=== PATIENT | female | born 1960 | race Caucasian/White ===

== ENCOUNTER 2017-10-21 01:59 | Inpatient (IN) | payer MEDICAID ==
--- NOTE | 2017-10-21 02:26 | ED Physician Chart ---
ED Chief Complaint/HPI - Patient Information Date Seen:: 10/21/17 Time Seen:: 02:00 Chief Complaint:: Dyspnea History of Present Illness:: onset x one day of dyspnea, cough, chest pain, fever, and congestion; pt denies H/As, neck pain, abd. pain, A/N/V/D/C, chills, or urinary s/s Allergies:: Allergies Allergy/AdvReac Type Severity Reaction Status Date / Time No Known Allergies Allergy Verified 10/21/17 02:14 Vitals:: Vital Signs - 8 hr 10/21/17 02:00 Temp 98.6 F HR 120 RR 20 BP 181/110 O2 Sat % 95 Historian:: Patient Review:: Nurse's Note Reviewed ED Review of Systems - Review of Systems General/Constitutional: Fever, No chills, No weight loss, No weakness, No diaphoresis, No edema, No loss of appetite Skin: No skin lesions, No rash, No bruising Head: No headache, No light-headedness Eyes: No loss of vision, No pain, No diplopia ENT: No earache, No nasal drainage, No sore throat, No tinnitus Neck: No neck pain, No swelling, No thyromegaly, No stiffness, No mass noted Cardio Vascular: Chest pain, Palpitations, No PND, No orthopnea, No edema Pulmonary: SOB, Cough, No sputum, No wheezing GI: No nausea, No vomiting, No diarrhea, No pain, No melena, No hematochezia, No constipation, No hematemesis G/U: No dysuria, No frequency, No hematuria, No nacturia Repeater Operator: No vaginal discharge, No abnormal vaginal bleed, No contraction Musculoskeletal: No bone or joint pain, No back pain, No muscle pain Endocrine: No polyuria, No polydipsia Psychiatric: No prior psych history, No depression, No anxiety, No suicidal ideation, No homicidal ideation, No auditory hallucination, No visual hallucination Hematopoietic: No bruising, No lymphadenopathy Allergic/Immuno: No urticaria, No angioedema Neurological: No syncope, No focal symptoms, No weakness, No paresthesia, No headache, No seizure, No dizziness, No confusion, No vertigo ED Past Medical History - Past Medical History Obtainable: Yes Past Medical History: HTN, CAD, Asthma/COPD, Dyslipidemia Family History: Diabetes Melitus, HTN Social History: Smoker, No Alcohol, No Drug Use, Surgical History: None Psychiatricy History: None Medication: Reviewed Family Medical History - Family Member Mother History Unknown: Yes ED Physical Exam - Physical Examination General/Constitutional: Awake, Well-developed, well-nourished, Alert, No distress, GCS 15, Non-toxic appearing, Ambulatory Head: Atraumatic Eyes: Lids, conjuctiva normal, PERRL, EOMI Skin: Nl inspection, No rash, No skin lesions, No ecchymosis, Well hydrated, No lymphadenopathy ENMT: External ears, nose nl, TM canals nl, Nasal exam nl, Lips, teeth, gums nl , Oropharynx nl, Tonsils nl Neck: Nontender, Full ROM w/o pain, No JVD, No nuchal rigidity, No bruit, No mass, No stridor Respiratory: Nl effort/Exclusion Other Respiratory comments:: Lungs: + Rales and Rhonchi Cardio Vascular: RRR, No murmur, gallop, rubs, NL S1 S2, Carotid/Femoral/Distal pulses equal bilaterally GI: No tenderness/rebounding/guarding, No organomegaly, No hernia, Normal BS's, Nondistended, No mass/bruits, No McBurney tenderness : No CVA tenderness Extremities: No tenderness or effusion, Full ROM, normal strength in all extremities, No edema, Normal digits & nails Neuro/Psych: Alert/oriented, DTR's symmetric, Normal sensory exam, Normal motor strength, Judgement/insight normal, Mood normal, Normal gait, No focal deficits Misc: Normal back, No paraspinal tenderness ED Labs/Radiology/EKG Results - Lab Results Comments:: K+: 3.1; BNP: 580; D-Dimer: 1870 - Radiology Results Comments:: CXR: + CHF; + Infiltrate; COPD - EKG Interpretations EKG Time:: 02:11 Rate & Rhythm: 115; ST Comments:: non-specific st-t changes ED Septic Shock - . Is Septic Shock (SBP<90, OR Lactate>4 mmol\L) present?: No - <6hrs of presentation: Vital Signs: Vital Signs - 8 hr 10/21/17 02:00 Temp 98.6 F HR 120 RR 20 BP 181/110 O2 Sat % 95 ED Reassessment (Disposition) - Reassessment Reassessment Condition:: Improved - Diagnosis Diagnosis:: Anemia; CHF; Chest Pain; Angina Pectoris; PNA; Sepsis: Dyspnea; PE; HTN; Uncontrolled Hypertension; COPD; Hypokalemia - Aftercare/Follow up Instructions Aftercare/Follow-Up Instructions:: Counseled pt regarding lab results/diagnosis & need follow up, Counseled pt & family regarding lab results/diagnosis & need follow up - Patient Disposition Discharge/Transfer:: Acute Care w/in this hosp Accepting Physician:: Dr. Jaquez Time Called:: 329 Time Responded:: 03:30 Admitted to:: Telemetry Spoke to:: Dr. Jaquez Admitting Medical Physician:: Dr. Jaquez Condition at Disposition:: Stable, Improved
[2017-10-21] MEDS ORDERED: Morphine Sulfate 2 mg/mL 1mL Syr IV STA (02:37)
[2017-10-21 02:54] LABS: URINE MICROSCOPIC INDICATED? YES; URINE SOURCE MIDSTREAM
[2017-10-21] MEDS ORDERED: Morphine Sulfate 2 mg/mL 1mL Syr ONE (02:56)
[2017-10-21 02:59] LABS: % BASOPHILS 1.1 % (0.0-2.0); % EOSINOPHILS 4.1 % (0.0-5.0); % LYMPHOCYTES 28.1 % (20.0-50.0); % MONOCYTES 4.6 % (2.0-10.0); % NEUTROPHILS 62.1 % (40.0-80.0); BASOPHILE ABSOLUTE 0.1 Th/cumm (0-0.2); EOSINOPHILE ABSOLUTE 0.3 Th/cmm (0.1-0.4); HEMATOCRIT 35.6 % (41.0-60); HEMOGLOBIN 11.8 gm/dL (12-16); LYMPHOCYTE ABSOLUTE 2.2 Th/cmm (1.5-3.0); MEAN CELL VOLUME 88.7 fl (81-100); MEAN CORPUSCULAR HEMOGLOBIN 29.3 pg (27.0-31.0); MEAN CORPUSCULAR HGB CONC 33.1 pg (28.0-36.0); MEAN PLATELET VOLUME 9.1 fl; MONOCYTE ABSOLUTE 0.4 Th/cmm (0.3-1.0); NEUTROPHILE ABSOLUTE 4.8 Th/cmm (1.8-8.0); PLATELET COUNT 392 Th/cmm (150-400); RED BLOOD COUNT 4.01 Mil/cmm (3.80-5.10); RED CELL DISTRIBUTION WIDTH 16.3 % (11.5-20.0); WHITE BLOOD COUNT 7.8 Th/cmm (4.8-10.8)
[2017-10-21 03:04] LABS: URINE BILIRUBIN NEGATIVE (NEGATIVE); URINE BLOOD NEGATIVE (NEGATIVE); URINE GLUCOSE (UA) NEGATIVE (NEGATIVE); URINE KETONE NEGATIVE (NEGATIVE); URINE LEUKOCYTE ESTERASE NEGATIVE (NEGATIVE); URINE NITRATE NEGATIVE (NEGATIVE); URINE PROTEIN NEGATIVE (NEGATIVE); URINE UROBILINOGEN 0.2 E.U./dL (0.2 - 1.0)
[2017-10-21 03:06] LABS: URINE CLARITY CLEAR (CLEAR); URINE COLOR YELLOW
[2017-10-21 03:07] LABS: URINE EPITHELIAL CELLS MODERATE /lpf (FEW); URINE RBC 0-2 /hpf (0-5); URINE WBC 0-2 /hpf (0-5)
[2017-10-21 03:08] LABS: URINE BACTERIA FEW /hpf (NONE SEEN)
[2017-10-21 03:09] LABS: ALB/GLOB RATIO 1.4 (1.0-1.8); ALKALINE PHOSPHATASE 97 U/L (34-104); ANION GAP 13.8 (7.0-16.0); BILIRUBIN,TOTAL 0.3 mg/dL (0.3-1.0); BUN - UREA NITROGEN 5 mg/dL (7-25); CALCIUM SERUM 9.3 mg/dL (8.6-10.3); CARBON DIOXIDE 23.3 mEq/L (21.0-31.0); CHLORIDE 108 mEq/L (98-107); CHOLESTEROL 215 mg/dL (<200); CREATININE - SERUM 0.7 mg/dL (0.6-1.2); CREATININE KINASE 109 U/L (30-223); GFR AFRICAN-AMERICAN > 60.0 ml/min (>90); GFR NON AFRICAN-AMERICAN > 60.0 ml/min; GLUCOSE 141 mg/dL (70-105); HDL -HIGH DENSITY LIPOPROTEIN 43 mg/dL (23-92); POTASSIUM SERUM 3.1 mEq/L (3.5-5.1); SGOT 22 U/L (13-39); SGPT/ALT 14 U/L (7-52); SODIUM SERUM 142 mEq/L (136-145); TOTAL PROTEIN,SERUM 6.9 gm/dL (6.0-8.3); TRIGLYCERIDES 169 mg/dL (<150)
[2017-10-21 03:10] LABS: INR 0.92 (0.5-1.4); PROTHROMBIN TIME (TEST) 9.6 SECONDS (9.5-11.5)
[2017-10-21] MEDS ORDERED: Aspirin 325 mg EC PO ONE (03:48)
[2017-10-21] MEDS ORDERED: Levofloxacin 500mg/100mL 500 MG/100 ML BAG IV ONE ×2 (03:48→03:53)
[2017-10-21] MEDS ORDERED: NITROGLYCERIN OINT 2% 1 INCH PACKET TP STA (03:49)
[2017-10-21] MEDS ORDERED: NITROGLYCERIN OINT 2% 1 INCH PACKET TP ONE (03:54)
[2017-10-21] MEDS ORDERED: Potassium Chloride 20 mEq ER Tab PO ONE ×2 (03:57→04:15)
[2017-10-21] MEDS ORDERED: Aspirin 81mg Chewable Tab ONE (04:02)
[2017-10-21] MEDS ORDERED: Albuterol/Ipratropium Neb 3 ML AERS HHN PRN (04:30)
--- NOTE | 2017-10-21 07:49 | Diagnostic Imaging Report ---
CHEST X-RAY: AP view INDICATION: Dyspnea COMPARISON: None FINDINGS: Right lower lung zone infiltrates are noted. An additional left mid lung hazy and linear densities are noted. No pleural effusions. Heart size mildly prominent. Degenerative changes of the spine are noted. There is atherosclerosis of the aortic arch. IMPRESSION: Right lower lung zone infiltrate concerning for pneumonia. Clinical correlation and follow-up is recommended to ensure resolution and exclude underlying neoplastic process. If indicated short-term follow-up CT chest may also be obtained for further assessment Left mid lung hazy densities and linear densities probably related to subsegmental atelectasis. Mild cardiomegaly and atherosclerosis.
[2017-10-21] MEDS ORDERED: Aspirin 81mg Chewable Tab PO SCH (09:00)
--- NOTE | 2017-10-21 18:36 | History & Physical ---
ADMIT DATE: 10/21/2017 CHIEF COMPLAINT: Chest pain, cough, fever for 1 day duration. HISTORY OF PRESENT ILLNESS: The patient is a 57-year-old female presented to the Emergency Room with cough, fever, chest pain, evaluated by the ER physician. Initial workup significant for early pneumonia, admitted to ICU, started on IV fluid, antibiotic. The patient denies any nausea, any vomiting. PAST MEDICAL HISTORY: Significant for hypertension, diabetes mellitus, hypothyroidism, depression. PAST SURGICAL HISTORY: No recent surgery. ALLERGIES: None. MEDICATIONS: Follow admission reconciliation. SOCIAL HISTORY: No smoking. No alcohol. No drug. FAMILY HISTORY: Noncontributory. REVIEW OF SYSTEMS: RENAL SYSTEM: No history of chronic renal disorder. CARDIOVASCULAR SYSTEM: No coronary artery disease. She has history of hypertension. ENDOCRINE SYSTEM: She has a history of diabetes mellitus and hypothyroidism. GASTROINTESTINAL SYSTEM: No upper or lower GI bleed. NEUROLOGICAL: She has history of psychosis. SKELETOMUSCULAR SYSTEM: No muscular dystrophy. HEMATOLOGIC SYSTEM: No bleeding tendencies. RESPIRATORY SYSTEM: She has asthma, pneumonia. PHYSICAL EXAMINATION: GENERAL: She is awake, alert, oriented. VITAL SIGNS: Temperature 98, heart rate 88, blood pressure 134/70. HEENT: Normocephalic. Pupils reacting equally to light and accommodation. Sclerae clear. NECK: Supple. Negative for lymphadenopathy, JVD or bruit. CHEST: Bilaterally normal. No rales, rhonchi or wheezing. HEART: S1, S2 normal. No gallop rhythm. ABDOMEN: Soft. Bowel sounds positive. EXTREMITIES: No edema. NEUROLOGIC: She is awake, alert, oriented. No focal motor or sensory deficit. Cranial nerves 2-12 are intact. ASSESSMENT: 1. Early pneumonia. 2. Chest pain. 3. Hypertension. 4. Diabetes mellitus. 5. Hypothyroidism. 6. Psychosis. PLAN: The patient admitted to the hospital under Dr. Bradley's service, started on IV fluid, IV antibiotic, breathing treatment, resumed her home medication. The patient is a full code. JOB# [id number]
[2017-10-22] MEDS ORDERED: Levofloxacin 750mg/150mL 750 MG/150 ML BAG IV SCH (04:30)
[2017-10-22] MEDS ORDERED: Levothyroxine 0.025 Mg Tab PO SCH (07:30)
[2017-10-22] MEDS ORDERED: ENALAPRIL MALEATE 10 MG PO SCH (09:00)
== END 2017-10-21 16:15 | disposition left against medical advice (07) | DRG 720 ==
LOC: ER 01:59 → ICU 03:56
PROVIDERS: ADMIT Family Medicine; ATTEND Family Medicine
DX: A41.9 Sepsis, unspecified organism (principal); I26.99 Other pulmonary embolism without acute cor pulmonale; I11.0 Hypertensive heart disease with heart failure; J18.9 Pneumonia, unspecified organism; I50.9 Heart failure, unspecified; E78.5 Hyperlipidemia, unspecified; F17.210 Nicotine dependence, cigarettes, uncomplicated; D64.9 Anemia, unspecified; I25.119 Atherosclerotic heart disease of native coronary artery with unspecified angina pectoris; J44.0 Chronic obstructive pulmonary disease with (acute) lower respiratory infection; E87.6 Hypokalemia; E03.9 Hypothyroidism, unspecified; F29 Unspecified psychosis not due to a substance or known physiological condition; Z83.3 Family history of diabetes mellitus; Z82.49 Family history of ischemic heart disease and other diseases of the circulatory system
CPT/HCPCS: 36415-UA; 71045-TC; 80053-TC; 80061-TC; 81001-TC; 81025-TC; 82550-TC; 83605; 83880-TC; 84484-TC; 85025-TC; 85379-TC; 85610-TC; 85730-TC; 96374; 96375; J1940; J1956; J2270; Z7610